=== PATIENT | male | born 1995 | race Caucasian/White ===

== ENCOUNTER 2023-04-21 23:03 | Emergency (ER) | payer MEDICAID ==
[~2023-04-21] VITALS: Ht 182.9 cm; Wt 74.4 kg
[2023-04-21] MEDS ORDERED: ondansetron/PF 4mg/2ml inj IV ONE (23:45)
[2023-04-21] MEDS ORDERED: morphine 4 MG/ML inj SYRINge IV ONE (23:45)
[2023-04-21 23:58] LABS: ALANINE AMINOTRANSFERASE 23 U/L (12-78); ALBUMIN 4.5 G/DL (3.4-5.0); ALBUMIN/GLOBULIN RATIO 1.4 (1.1-1.5); ALKALINE PHOSPHATASE 67 IU/L (46-116); ANION GAP 12 (8-16); ASPARTATE AMINO TRANSFERASE 26 U/L (10-37); BILIRUBIN,TOTAL 1.1 MG/DL (0.1-1.0); BLOOD UREA NITROGEN 12 MG/DL (7-18); CALCIUM 9.1 MG/DL (8.5-10.1); CHLORIDE 102 MMOL/L (99-107); GLUCOSE 89 MG/DL (70-104); POTASSIUM 3.9 MMOL/L (3.5-5.1); SODIUM 137 MMOL/L (135-145); TOTAL CARBON DIOXIDE 22.7 MMOL/L (24-32); TOTAL PROTEIN 7.8 G/DL (6.4-8.2); eCRCL 118 ML/MIN; eGFR 90 ML/MIN
[2023-04-22 00:06] LABS: WHITE BLOOD COUNT 13.2 X10'3 (4.5-11.0)
[2023-04-22 00:08] LABS: BASOPHILS # (AUTO) 0.1 X10'3 (0-0.2); EOSINOPHILS # (AUTO) 0.1 X10'3 (0-0.9); EOSINOPHILS % (AUTO) 0.7 % (0-6); HEMATOCRIT 49.4 % (42.0-52.0); HEMOGLOBIN 17.1 g/dl (14.0-17.9); LYMPHOCYTES # (AUTO) 4.1 X10'3 (1.1-4.8); LYMPHOCYTES % (AUTO) 30.8 % (21-51); MEAN CORPUSCULAR HEMOGLOBIN 29.2 PG (27.0-31.0); MEAN CORPUSCULAR HGB CONC 34.6 g/dL (33.0-36.5); MEAN CORPUSCULAR VOLUME 84.3 FL (78-98); MEAN PLATELET VOLUME 8.9 FL (7.4-10.4); MONOCYTES # (AUTO) 0.9 X10'3 (0-0.9); MONOCYTES % (AUTO) 6.9 % (2-12); NEUTROPHILS % (AUTO) 60.6 % (42-75); PLATELET COUNT 274 X10'3 (140-440); RED BLOOD COUNT 5.86 X10'6 (4.70-6.10); RED CELL DISTRIBUTION WIDTH 13.5 % (11.5-14.5)
[2023-04-22] MEDS ORDERED: iohexol 300mg/ml 100ml inj. ONE (00:10)
[2023-04-22] MEDS ORDERED: morphine 4 MG/ML inj SYRINge IV ONE (01:10)
[2023-04-22] MEDS ORDERED: ketorolac trometh. 30mg/ml inj. IV ONE (02:20)
[2023-04-22] MEDS ORDERED: HYDR-3965 PO (02:22)
[2023-04-22 02:39] VITALS: BP 132/72; PULSE 80; RESP 18; TEMP 98.4; O2SAT 96
== END 2023-04-22 02:41 | disposition home or self-care (01) ==
LOC: ER 23:04
DX: S80.11XA Contusion of right lower leg, initial encounter (principal); M54.2 Cervicalgia; R07.9 Chest pain, unspecified; V98.8XXA Other specified transport accidents, initial encounter; Y93.89 Activity, other specified; Y92.89 Other specified places as the place of occurrence of the external cause; Y99.8 Other external cause status
CPT/HCPCS: 36415; 70450; 71260; 72125; 74177; 80053; 84484; 85025; 93005; 96374; 96375; 96376; 99285; J1885; J2270; J2405; J3490; Q9967